=== PATIENT | female | born 1980 | race Caucasian/White ===

== ENCOUNTER 2016-08-27 13:42 | Emergency (ER) | payer OTHER ==
[~2016-08-27 13:42] MED LIST: ALPRAZOLAM; ALPRAZOLAM PO; B12 HEALTH1000 MCG/1; CATAFLAM50 MG PO; CIPRO PO; CLARITIN10 MG PO; CYMBALTA PO; DICLOFENAC PO; DOXEPIN PO; EC-NAPROSYN500 MG PO; FLEXERIL10 MG PO; HCTZ PO; HYDROCODONE-APA1 T30 PO; IBUPROFEN PO; KETOPROFEN PO; LASIX; LASIX20 MG PO; LEVAQUIN PO; LORATADINE PO; LORTAB 7.5-5001 TAB; LORTAB 7.5-5001 TAB PO; MICRO-K; MUCINEX DM1 TAB.SR . PO; MULTI-DAY VITAM1 TAB; NAPROSYN500 MG PO; NEURONTIN PO; NORVASC PO; PROMETHAZINE W118 M2 PO; PYRIDIUM PO; ROBAXIN PO; SEROQUEL PO; TYLOX 5/500 CAP1 CAP PO; VICODIN 5/500 T1 TAB PO; VITAMIN D400 UNI1; ZITHROMAX PO
== END 2016-08-27 13:43 | disposition home or self-care (01) ==
LOC: SED 13:42
DX: K08.89 Other specified disorders of teeth and supporting structures (principal); Z88.5 Allergy status to narcotic agent
CPT/HCPCS: 99282